=== PATIENT | female | born 1940 | race African-American/Black ===

== ENCOUNTER 2019-01-17 16:58 | Emergency (ER) | payer MEDICAID, MEDICARE ==
[~2019-01-17] VITALS: Ht 157.5 cm; Wt 72.7 kg
[~2019-01-17 16:58] MED LIST: ASPI-1159 PO; INSU100I7 SQ; LEVVL SQ; LOSA100T14 PO; ROSU20TA PO; TRAM50TA PO
[2019-01-17] MEDS ORDERED: KETOROLAC 15MG/ML VIAL IM ONE (19:15)
[2019-01-17 20:11] VITALS: BP 144/72
== END 2019-01-17 20:12 | disposition home or self-care (01) ==
LOC: ER 16:58
DX: M54.32 Sciatica, left side (principal); E11.9 Type 2 diabetes mellitus without complications; Z79.4 Long term (current) use of insulin
CPT/HCPCS: 73502; 96372; 99283; J1885

== ENCOUNTER 2019-01-27 19:01 | Emergency (ER) | payer MEDICARE ==
[~2019-01-27] VITALS: Ht 154.9 cm; Wt 73.0 kg
[2019-01-27] MEDS ORDERED: CYCLOBENZAPRINE 10MG TABLET PO ONE (23:45)
[2019-01-27] MEDS ORDERED: OXYCODONE HCL/ACETAMINOPHEN 5/325MG TABLET PO ONE (23:45)
[2019-01-28 00:24] LABS: CHLORIDE 107 mEq/L (98-107)
[2019-01-28 01:56] LABS: CLARITY URINE CLEAR (CLEAR); COLOR URINE YELLOW (YELLOW); KETONES URINE NEGATIVE (NEGATIVE); LEUKOCYTE ESTERASE URINE 3+ (NEGATIVE); NITRITE URINE NEGATIVE (NEGATIVE); OCCULT BLOOD URINE NEGATIVE (NEGATIVE); PROTEIN URINE NEGATIVE (NEGATIVE); SPECIFIC GRAVITY URINE 1.007 (1.005-1.030); UROBILINOGEN URINE 0.2 E.U./dL (0.2-1.0)
[2019-01-28 04:37] VITALS: BP 119/58
== END 2019-01-28 04:45 | disposition home or self-care (01) ==
LOC: ER 20:34
DX: S93.492A Sprain of other ligament of left ankle, initial encounter (principal); M54.42 Lumbago with sciatica, left side; E11.9 Type 2 diabetes mellitus without complications; I10 Essential (primary) hypertension; K51.90 Ulcerative colitis, unspecified, without complications; X58.XXXA Exposure to other specified factors, initial encounter; Y93.89 Activity, other specified; Y92.89 Other specified places as the place of occurrence of the external cause; Y99.8 Other external cause status; Z79.82 Long term (current) use of aspirin; Z79.4 Long term (current) use of insulin
CPT/HCPCS: 36415; 72100; 73610; 73630; 80048; 99284

== ENCOUNTER 2019-10-24 10:57 | Emergency (ER) | payer MEDICARE ==
[~2019-10-24] VITALS: Ht 162.6 cm; Wt 90.0 kg
[~2019-10-24 10:57] MED LIST changes: -ASPI-1159 PO; +ASPI-1497 PO; -LOSA100T14 PO; +LOSA100T32 PO; -ROSU20TA PO; +ROSU20TA2 PO
[2019-10-24] MEDS ORDERED: ONDANSETRON 4MG ODT PO ONE (13:00)
[2019-10-24] MEDS ORDERED: HYDROCODONE/ACETAMINOPHEN 5/325MG TABLET PO ONE (13:00)
[2019-10-24 15:50] VITALS: BP 128/76
== END 2019-10-24 16:10 | disposition home or self-care (01) ==
LOC: ER 10:57
DX: M54.40 Lumbago with sciatica, unspecified side (principal); G89.29 Other chronic pain; I10 Essential (primary) hypertension; E11.9 Type 2 diabetes mellitus without complications; Z79.4 Long term (current) use of insulin; Z79.82 Long term (current) use of aspirin
CPT/HCPCS: 72148; 99284; Q0162

== ENCOUNTER 2020-11-20 12:31 | Emergency (ER) | payer MEDICARE, MEDICAID ==
[~2020-11-20] VITALS: Ht 157.5 cm; Wt 65.0 kg
[2020-11-20] MEDS ORDERED: MORPHINE SULFATE 4 MG/ML CPJ (NOT FOR IM USE) IV STA (13:00)
[2020-11-20] MEDS ORDERED: ONDANSETRON HCL 4MG/2ML INJ IV STA (13:00)
[2020-11-20 13:39] LABS: BASOPHILS % 0.4 % (0.0-2.0); EOSINOPHILS % 0.1 % (0.0-5.0); HEMATOCRIT. 36.3 % (36.0-48.0); HEMOGLOBIN. 12.3 g/dL (12.0-16.0); LYMPHOCYTES % 7.9 % (20.0-50.0); MEAN CORPUSCULAR HEMOGLOBIN 27.5 pg (28.0-32.0); MEAN CORPUSCULAR VOLUME 81.1 fL (81.0-99.0); MEAN PLATELET VOLUME 9.4 fl (7.4-10.4); MONOCYTES % 7.6 % (2.0-8.0); PLATELET 473 x1000/uL (130-400); RED BLOOD CELL COUNT 4.48 mill/uL (4.2-5.4); RED CELL DISTRIBUTION WIDTH 16.2 % (11.6-14.6)
[2020-11-20 13:49] LABS: CHLORIDE 98 mEq/L (98-107)
[2020-11-20 15:02] LABS: INR 1.1; PROTHROMBIN TIME 11.9 sec (9.6-11.0)
[2020-11-20] MEDS ORDERED: SODIUM CHLORIDE 0.9% 1000ML BAG (SEPSIS BOLUS) IV ONE (15:30)
[2020-11-20] MEDS ORDERED: PIPERACILLIN/TAZOBACTAM 3.375GM/50ML PREMIX IV ONE (15:30)
[2020-11-20] MEDS ORDERED: VANCOMYCIN 1 G PREMIX 200 ML IV NR (15:45)
[2020-11-20] MEDS ORDERED: PIPERACILLIN/TAZ 3.375G PREMIX 50 ML IV NR (15:45)
[2020-11-20] MEDS ORDERED: IOHEXOL-300 100 ML BOTTLE ONE (16:55)
[2020-11-20 19:06] VITALS: BP 140/79
== END 2020-11-20 20:29 | disposition short-term general hospital (02) ==
LOC: ER 12:31
DX: R10.9 Unspecified abdominal pain (principal); E11.9 Type 2 diabetes mellitus without complications; Z79.899 Other long term (current) drug therapy; Z79.4 Long term (current) use of insulin
CPT/HCPCS: 36415; 74177; 80053; 83605; 83690; 85025; 85610; 86850; 86900; 86901; 93005; 96365; 96368; 99285; J2543; J3370; J7030; Q9967

== ENCOUNTER 2021-01-24 21:45 | Emergency (ER) | payer MEDICAID, MEDICARE ==
[~2021-01-24] VITALS: Ht 165.1 cm; Wt 50.0 kg
[2021-01-24] MEDS ORDERED: SODIUM CHLORIDE 0.9% 1,000 ML IV ONE (22:30)
[2021-01-25 00:04] LABS: CHLORIDE 101 mEq/L (98-107)
[2021-01-25 00:05] LABS: BASOPHILS % 0.2 % (0.0-2.0); EOSINOPHILS % 0.1 % (0.0-5.0); HEMATOCRIT. 38.4 % (36.0-48.0); HEMOGLOBIN. 12.7 g/dL (12.0-16.0); LYMPHOCYTES % 12.7 % (20.0-50.0); MEAN CORPUSCULAR HEMOGLOBIN 27.5 pg (28.0-32.0); MEAN PLATELET VOLUME 10.1 fl (7.4-10.4); MONOCYTES % 3.5 % (2.0-8.0); NEUTROPHILS % 83.5 % (40.0-76.0); PLATELET 517 x1000/uL (130-400); RED BLOOD CELL COUNT 4.62 mill/uL (4.2-5.4); RED CELL DISTRIBUTION WIDTH 17.1 % (11.6-14.6)
[2021-01-25] MEDS ORDERED: PIPERACILLIN/TAZ 3.375G PREMIX 50 ML IV ONE (02:30)
[2021-01-25] MEDS ORDERED: METRONIDAZOLE 500 MG PREMIX 100 ML IV ONE (02:30)
[2021-01-25] MEDS ORDERED: VANCOMYCIN 1 G PREMIX 200 ML IV ONE (02:30)
[2021-01-25 05:40] VITALS: BP 126/63
== END 2021-01-25 05:40 | disposition short-term general hospital (02) ==
LOC: ER 21:45
DX: A41.9 Sepsis, unspecified organism (principal); K65.1 Peritoneal abscess; E11.65 Type 2 diabetes mellitus with hyperglycemia; M19.90 Unspecified osteoarthritis, unspecified site; Z93.3 Colostomy status; Z87.891 Personal history of nicotine dependence; Z98.890 Other specified postprocedural states; Z79.82 Long term (current) use of aspirin; Z79.4 Long term (current) use of insulin
CPT/HCPCS: 36415; 71045; 74176; 80053; 82962; 83605; 83880; 84484; 85025; 87040; 93005; 99291; J7030